=== PATIENT | male | born 1985 | race Caucasian/White ===

== ENCOUNTER 2022-03-18 11:58 | Emergency (ER) | payer OTHER, SELFPAY ==
--- NOTE | ~2022-03-18 | XR_ITS ---
EXAMINATION: XR chest 2V DATE: 03/18/2022 13:04 INDICATION: Chest pain and dizziness TECHNIQUE: PA and lateral views of the chest are obtained. COMPARISON: None available FINDINGS: The lungs are free of acute opacities. There is no pleural effusion or pneumothorax. The ca rdiomediastinal silhouette is normal. There is mild anterior wedging of vertebral bodies at the thora columbar junction. IMPRESSION: 1. No acute cardiopulmonary abnormality. Reviewed, dictated and finalized at location F.
--- NOTE | 2022-03-18 12:00 | ECG_ITS ---
Measurements Intervals [place] Rate: 61 P: 55 [place]: 134 QRS: 67 QRSD: 86 T: 59 QT: 404 QTc: 410 Interpretive Statements SINUS RHYTHM NORMAL ELECTROCARDIOGRAM NO PREVIOUS ECG AVAILABLE FOR COMPARISON Electronically Signed On 03-18-2022 16:51:14 CDT by Telly Millan M.D.
[2022-03-18 12:12] VITALS: BP 153/94; PULSE 62; RESP 16; TEMP 36.6; O2SAT 100
[2022-03-18 12:19] LABS: Basophils Absolute Auto 0.1 K/mm3 (0.0-0.1); Basophils Percent Auto 0.8 % (0.2-1.2); Eosinophils Absolute Auto 0.2 K/mm3 (0-0.3); Eosinophils Percent Auto 3.7 % (0-4.4); Hematocrit 41.9 % (42.0-52.0); Hemoglobin 14.5 g/dL (14.0-18.0); Immature Granulocyte Absolute 0.02 K/mm3 (0.00-0.031); Immature Granulocyte Percent A 0.3 % (0-0.5); Lymphocytes Absolute Auto 1.85 K/mm3 (0.9-3.2); Lymphocytes Percent Auto 28.5 % (18.3-44.2); Mean Corpuscular HGB Conc 34.6 g/dl (32-36); Mean Corpuscular Hemoglobin 30.8 pg (26-34); Mean Platelet Volume 9.4 fl (7.4-10.4); Monocytes Absolute Auto 0.6 K/mm3 (0.1-0.6); Monocytes Percent Auto 8.8 % (2.6-8.5); Neutrophils Absolute Auto 3.8 K/mm3 (1.3-6.7); Neutrophils Percent Auto 57.9 % (45.5-73.1); Platelet Count Result 268 k/mm3 (150-375); Red Blood Count 4.71 M/mm3 (4.6-6.20); Red Cell Distribution Width 12.4 % (11.5-14.5); White Blood Count 6.5 K/mm3 (4.5-10.0)
[2022-03-18 12:31] LABS: Alanine Aminotransferase 34 U/L (6-50); Albumin Level 4.3 g/dL (3.5-5.1); Alkaline Phosphatase 53 U/L (38-126); Anion Gap 5 mmol/L (8-16); Aspartate Amino Transferase 25 U/L (17-59); Bilirubin,Total 0.5 mg/dL (0.2-1.3); Blood Urea Nitrogen 19 mg/dL (9-20); Calcium 8.6 mg/dL (8.4-10.2); Carbon Dioxide 27 mmol/L (22-30); Chloride 106 mmol/L (98-107); Estimated CRCL calculation 92 ml/min; Estimated Glomerular Filt Rate > 60; Glucose 101 mg/dL (65-110); Lipase 98 U/L (23-300); Potassium 4.2 mmol/L (3.4-5.0); Sodium 138 mmol/L (137-145)
--- NOTE | 2022-03-18 12:42 | ED.CHESTPAIN ---
HPI - Chest Pain General Chief Complaint: Chest Pain Stated Complaint: chest pain Time Seen by Provider: 03/18/22 12:25 Source: RN notes reviewed History of Present Illness HPI narrative: Patient presents emergency room from home for chest pain. Patient states pain began approximate 11 PM last night. The pain is located midsternal chest and does not radiate. Described as sharp and stabbing in nature. States nothing makes the pain better or worse. He denies any fevers or chills, shortness of breath, abdominal pain nausea vomiting or any other symptoms. States he not taking pain medication at home. Denies any previous cardiac history Related Data Allergies Allergy/AdvReac Type Severity Reaction Status Date / Time No Known Allergies Allergy Verified 03/18/22 12:49 Review of Systems Review of Systems: Gen.: Denies fevers or chills ENT: Denies congestion Respiratory: Denies shortness of breath or cough CV: See HPI GI: Denies abdominal pain nausea, emesis or diarrhea Musculoskeletal: Denies back pain or muscle pain Neuro: Denies numbness, tingling, weakness or focal weakness Skin: Denies rash Except as documented, all other systems reviewed and negative COUNT INCLUDES THE [facility] Past Medical History Medical History (Updated 03/18/22 @ 16:30 by Callum Xiao DO) Patient denies significant medical history Social History Social History (Updated 03/18/22 @ 12:43 by Callum Xiao DO) Smoking status: Never smoker Exam Narrative: APPEARANCE: No acute distress, nontoxic, resting in bed EYES: EOMI HEENT: Normocephalic, atraumatic, OMM RESPIRATORY: No respiratory distress Clear to auscultation bilaterally with no rhonchi wheezing or rales. CARDIOVASCULAR: Regular rate and rhythm without murmurs rubs or gallops. Chest: Tender palpation over the anterior chest wall just to the left of the sternum and regions of ribs 7 and 8 no swelling or ecchymosis ABDOMINAL: Soft, nontender, nondistended, no rebound or guarding MUSCULOSKELETAl: Moves all extremities. No clubbing, cyanosis or edema. NEURO: Awake and alert. Following commands, speech normal, no focal deficits SKIN:: Warm, dry. No rashes lesions or abrasions PSYCHIATRIC: Normal affect/mood, Course Course Emergency Course: Patient states chest pain is resolved following medication Discussed with patient results of workup and diagnosis. Discussed need for follow-up with primary care, proper use of medication, and reasons to return to the emergency department. Patient understands and agrees to current treatment plan Vital Signs Vital signs: Vital Signs Temperature 97.8 F 03/18/22 12:12 Pulse Rate 62 03/18/22 12:12 Respiratory Rate 16 03/18/22 12:12 Blood Pressure 153/94 H 03/18/22 12:12 Pulse Oximetry 100 03/18/22 12:12 Oxygen Delivery Room Air 03/18/22 12:12 Temperature 97.8 F 03/18/22 12:12 Pulse Rate 68 03/18/22 15:54 Respiratory Rate 16 03/18/22 15:54 Blood Pressure 129/97 H 03/18/22 15:54 Pulse Oximetry 99 03/18/22 15:54 Oxygen Delivery Room Air 03/18/22 12:12 MDM - Chest Pain MDM Narrative Medical decision making narrative: Patient's EKGs and labs are without significant high risk changes. Cardiac risk factors reviewed. Patient is felt likely low risk for ACS and reasonable for further risk stratification testing as an outpatient. Pain was not sudden or maximal in onset without tearing or ripping quality. No other signs of symptoms suggest aortic dissection. A low-risk Wells criteria is noted, PE is felt to be unlikely with negative D-dimer in ED. No pneumonia seen on evaluation today. Patient's chest pain is been constant since last night with 2 negative troponins in the emergency department patient is felt to be a reasonable candidate for continued evaluation as an outpatient Lab Data Result diagrams: 03/18/22 12:12 03/18/22 12:12 Labs: Lab Results 03/18/22 03/18/22 03/18/22 Range/Units 12:
[2022-03-18 12:45] LABS: Troponin I < 0.012 ng/mL (0.000-0.034)
[2022-03-18 12:50] VITALS: BP 122/72; PULSE 68; PULSE 69; RESP 18; O2SAT 99
[2022-03-18] MEDS: Please add drug allergy info to patient profile. XX (12:50)
[2022-03-18] MEDS: KETOROLAC 30 MG/ML VIAL (*BKC) IV PUSH (12:50)
[2022-03-18 12:53] LABS: INR 1.1; Partial Thromboplastin Time 30.6 SECONDS (22.3-36.8); Prothrombin Time 13.5 Seconds (11.1-14.7)
[2022-03-18 13:03] LABS: D Dimer < 0.27 ug/mL (<0.48)
[2022-03-18 13:30] VITALS: BP 129/79; PULSE 63; RESP 14; O2SAT 99
[2022-03-18 14:30] VITALS: BP 124/74; PULSE 63; RESP 14; O2SAT 99
[2022-03-18 15:29] LABS: Troponin I < 0.012 ng/mL (0.000-0.034)
[2022-03-18 15:54] VITALS: BP 129/97; PULSE 68; RESP 16; O2SAT 99
[2022-03-18] MEDS: MORPHINE SULFATE (*CRX) 2 MG/ML INJ IV PUSH (15:54)
[2022-03-18 16:45] VITALS: BP 128/74; PULSE 74; RESP 19; O2SAT 97
== END 2022-03-18 16:45 | disposition home or self-care (01) ==
PROVIDERS: Emergency Medicine; Emergency Provider Emergency Medicine
DX: R07.89 Other chest pain (principal)
CPT/HCPCS: 36415; 71046; 80053; 83690; 84484; 85025; 85380; 85610; 85730; 93005; 96374; 96375; 99284; A9270; J1885; J2270